=== PATIENT | female | born 1950 | race Caucasian/White ===

== ENCOUNTER 2017-02-25 05:04 | Day surgery (SDC) | payer BC ==
[~2017-02-25 05:04] MED LIST: LISINOPRIL-HCTZ1 T13 PO; PROTONIX40 MG PO
[2017-02-25 06:18] LABS: BASOPHILS 0.3 % (0-2); EOSINOPHILS 2.3 % (0-7); HEMATOCRIT 39.1 % (36.0-48.0); HEMOGLOBIN 12.8 g/dL (12-16); IMMATURE GRANULOCYTES 0.3 % (0-5); LYMPHOCYTES 44.5 % (15-50); MCH 28.6 pg (26.0-34.0); MCHC 32.7 g/dL (31.0-37.0); MCV 87.3 fL (80.0-100.0); MEAN PLATELET VOLUME 10.4 fL (7.4-10.4); MONOCYTES 6.8 % (2-11); NEUTROPHILS 45.8 % (40-80); PLATELET COUNT 248 10x3/uL (130-400); RBC 4.48 10x6/uL (4.00-5.40); RDW 12.6 % (11.5-14.5); WBC 6.2 10x3/uL (4.8-10.8)
[2017-02-25 06:39] VITALS: BP 125/69
[2017-02-25 06:44] LABS: CALC OSMOLALITY 284 mosm/kg (275-300); CALCIUM 8.8 mg/dL (8.5-10.1); CARBON DIOXIDE 24.7 mmol/L (21.0-32.0); CHLORIDE - SERUM 105 mmol/L (98-107); CREATININE - SERUM 0.7 mg/dL (0.6-1.3); GLUCOSE 115 mg/dL (74-106); POTASSIUM - SERUM 3.5 mmol/L (3.5-5.1); SODIUM 141 mmol/L (136-145); UREA NITROGEN 22 mg/dL (7-18); eGFR NON AFRICAN AMERICAN 89 mL/min (90-120)
[2017-02-25] MEDS ORDERED: HYDROCODONE-APA1 TAB PO (08:43)
--- NOTE | 2017-03-01 14:51 | OP ---
PATIENT NAME: LISA WANG MEDICAL RECORD: [id number] :54 LOCATION:D.OPS ADMISSION DATE: SURGEON: CHARLENE ULRICH MD DATE OF OPERATION: 02/25/2017 PREOPERATIVE DIAGNOSES: 1. Umbilical hernia. 2. Hypertension. 3. Gastroesophageal reflux disease. POSTOPERATIVE DIAGNOSES: 1. Umbilical hernia. 2. Hypertension. 3. Gastroesophageal reflux disease. PROCEDURE: Umbilical hernia repair without mesh. SURGEON: Charlene Ulrich MD REPORT OF PROCEDURE: The patient's abdomen was prepped and draped in sterile fashion. A semicircular incision was made on the inferior aspect of the umbilicus. Electrocautery was used to dissect through the subcutaneous tissue and through the hernia sac. The hernia sac was removed down to the fascial edges, this hernia contained omental tissue which easily pushed back into the abdominal cavity. The hernia defect was around 1 cm in greatest diameter. The surface of the fascia was cleared off in all directions. We then reapproximated the fascial edges transversely using interrupted 0 Prolenes. These were then tacked down with 3-0 Vicryl. The umbilicus was tacked down to the fascia using an interrupted 3-0 Vicryl. The subcutaneous tissues were reapproximated with interrupted 3-0 Vicryl and the skin was closed with running subcutaneous 5-0 Monocryl. A 10 mL of 0.25% Marcaine plain was infused into the surrounding tissue and the wound was dressed appropriately. COMPLICATIONS: None. CONDITION: Stable. ANESTHESIA: General endotracheal and local. BLOOD LOSS: Minimal. TRANSINT:[id number] Voice Confirmation ID: [id number] DOCUMENT ID: [id number] CHARLENE ULRICH MD at 1451 CC: [id number] DICTATION DATE: 02/25/17 0950 AGRICULTURE PROFESSOR: 02/25/17 1024 [facility] 02/25/17 [place] [id number]
== END 2017-02-25 10:30 | disposition home or self-care (01) ==
LOC: D.OPS 05:04 → D.PAN 12:00
PROVIDERS: Surgery
DX: K42.9 Umbilical hernia without obstruction or gangrene (principal); I10 Essential (primary) hypertension; K21.9 Gastro-esophageal reflux disease without esophagitis; Z01.812 Encounter for preprocedural laboratory examination

== ENCOUNTER → 2019-01-19 08:32 | Outpatient (CLI) | payer MEDICARE, OTHER ==
[~2019-01-19 08:32] MED LIST changes: +HYDROCODONE-APA1 TAB PO
== END | disposition home or self-care (01) ==
LOC: D.HCCARDIO 08:32
PROVIDERS: ATTEND Internal Medicine Cardiovascular Disease
DX: I20.9 Angina pectoris, unspecified (principal)